=== PATIENT | male | born 1930 | race Caucasian/White ===

== ENCOUNTER 2018-09-27 17:55 | Emergency (ER) | payer MEDICARE, OTHER ==
[2018-09-27] MEDS ORDERED: Metoprolol Tartrate 5 MG/5 ML VIAL ONE ×2 (18:38→19:21)
[2018-09-27 18:46] LABS: ALT (SGPT) 21 U/L (8-55); AST (SGOT) 36 U/L (5-34); Alkaline Phosphatase 118 U/L (40-150); Anion Gap 15 mmol/L (10-20); BUN (Urea Nitrogen) 15 mg/dL (8.4-25.7); Bilirubin, Total 0.7 mg/dL (0.2-1.2); Calc. Creatinine Clearance 0 mL/min (70-130); Calcium 9.4 mg/dL (7.8-10.44); Carbon Dioxide 23 mmol/L (23-31); Chloride 102 mmol/L (98-107); Estimated GFR-MDRD 73; Globulin 4.5 g/dL (2.4-3.5); Glucose 125 mg/dL (83-110); Potassium 4.4 mmol/L (3.5-5.1); Protein, Total 8.5 g/dL (5.8-8.1); Sodium 136 mmol/L (136-145)
[2018-09-27 19:01] LABS: #Basophils 0.1 thou/uL (0.0-0.2); #Eosinphils 0.1 thou/uL (0.0-0.7); #Lymphocytes 1.1 thou/uL (1.20-3.40); #Monocytes 1.3 thou/uL (0.11-0.59); #Neutrophils 9.8 thou/uL (1.40-6.50); %Basophils 0.7 % (0.0-1.0); %Eosinophils 0.9 % (0.0-10.0); %Lymphocytes 8.5 % (21.0-51.0); %Monocytes 10.4 % (0.0-10.0); %Neutrophils 79.5 % (42.0-75.0); Hemoglobin 13.3 g/dL (14.0-18.0); MDiff Complete? YES; Macrocytosis SLIGHT = 6-15 cells (100X) (0-5/hpf); Mean Corpuscular HGB CONC 34.7 g/dL (32.0-36.0); Mean Corpuscular Hemoglobin 37.7 pg (27.0-31.0); Mean Corpuscular Volume 108.7 fL (78.0-98.0); Mean Platelet Volume 8.3 fL (7.4-10.4); PLT Morphology Comment Appears Decreased; Platelet Count 75 thou/uL (130-400); RBC Distribution Width 15.8 % (11.5-14.5); Red Blood Cell (RBC) Count 3.54 mill/uL (4.70-6.10); White Blood Cell (WBC) Count 12.3 thou/uL (4.8-10.8)
--- NOTE | 2018-09-27 19:33 | RAD ---
CHEST ONE VIEW PORTABLE: HISTORY: An 88-year-old male with a history of dyspnea. COMPARISON: 05/24/2013 FINDINGS: Cardiomegaly. Increased linear and interstitial markings bilaterally. Old granuloma calcifications. Mild increased markings bilaterally, but these appear stable. No confluent pneumonia, overt edema, or significant pleural effusion. IMPRESSION: 1. Cardiomegaly with mild vascular congestion without overt edema. 2. 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 3. Compared to the prior study, there is little change in the appearance of the lung blue. 4. The heart size does appear to be enlarged from the prior study. POS: MARISA
--- NOTE | 2018-09-27 21:02 | CT ---
AT ANGIOGRAM CHEST WITH 3D RENDERING: HISTORY: An 88-year-old male with a history of dyspnea, hypertension, chest pain, and elevated D-dimer. FINDINGS: There is some bilateral hyperinflation and scattered bullous emphysema changes, as well as fairly ext ensive bilateral interstitial, linear, and reticulonodular parenchymal changes, and some bilateral ho neycombing, evidence for probable chronic interstitial lung disease. Small bilateral pleural effusio ns, greater on the right side, with some pleural-based parenchymal changes, probably representing cachorro e subsegmental atelectasis. There is cardiomegaly. There is three-vessel coronary artery calcific d isease. Generalized atherosclerotic ectatic changes of the ascending and descending thoracic aorta. No CT evidence for acute pulmonary embolism. Small pericardial fluid. The visualized upper abdomen is unremarkable. Air within the biliary tress. IMPRESSION: 1. No convincing CT evidence for acute pulmonary embolism. 2. Bilateral chronic lung changes with some pleural effusion changes, greater on the right side, and probable very small pericardial effusion. 3. Atherosclerosis of the aorta with generalized ectasia. 4. Pneumobilia. 5. Other findings as above. 6. Possible trace ascites. POS: MARISA
[2018-09-27] MEDS ORDERED: Aspirin 325 MG TAB ONE (21:07)
[2018-09-27] MEDS ORDERED: Enoxaparin Sodium 60 MG/0.6 ML SYRINGE ONE (21:07)
== END 2018-09-27 23:00 | disposition short-term general hospital (02) ==
LOC: MADERS 17:55
DX: I48.91 Unspecified atrial fibrillation (principal); E78.5 Hyperlipidemia, unspecified; I10 Essential (primary) hypertension; Z79.899 Other long term (current) drug therapy
CPT/HCPCS: 71045; 71275; 80053; 83880; 84484; 85025; 85379; 93005; 96372; 96374; 96376; J1650